=== PATIENT | male | born 2000 | race Caucasian/White ===

== ENCOUNTER → 2024-06-07 | Outpatient (CLI) | payer BC ==
--- NOTE | 2024-06-07 18:08 | CT ---
EXAMINATION TYPE: CT wrist RT wo con CT DLP: 130.7 mGycm, Automated exposure control for dose reduction was used. DATE OF EXAM: 06/07/2024 5:40 PM COMPARISON: None CLINICAL INDICATION: Male, 24 years old with history of S62.101A FRACTURE OF UNSP CARPAL BONE, RIGHT WRIST; PHH, Right wrist pain TECHNIQUE: Axial images were obtained of the CT wrist RT wo con, Additional coronal and sagittal refo rmatted images and soft tissue and bone window were obtained for review. 3-D reconstruction was creat ed on a separate workstation. Contrast used: mL of , (None if empty) Oral contrast used: (None if empty) FINDINGS: There is no evidence of fracture, subluxation, or dislocation. No significant soft tissue swelling or joint effusion is identified. No focal muscular atrophy or edema is identified. No radiop aque foreign body identified. IMPRESSION: No evidence of fracture. Consider further evaluation with MRI of the wrist to evaluate for soft tissu e/ligamentous injury.. [facility], , 06/07/2024 6:06 PM
== END | disposition home or self-care (01) ==
LOC: RADCTMAIN 17:17
PROVIDERS: ATTEND Orthopaedic Surgery Hand Surgery
DX: S62.101A Fracture of unspecified carpal bone, right wrist, initial encounter for closed fracture